=== PATIENT | male | born 1990 | race Caucasian/White ===

== ENCOUNTER 2020-11-16 11:10 | Outpatient (REF) | payer MEDICAID, SELFPAY ==
--- NOTE | ~2020-11-16 | XR_ITS ---
EXAMINATION: XR CHEST CLINICAL INFORMATION: Bronchitis, fever, previous pneumonia. Shortness of breath. COMPARISON: Most recent chest radiograph dated 07/20/2013. TECHNIQUE: 2 views of the chest were obtained. FINDINGS: Small left-sided pleural effusion with irregular left basilar airspace opacities. No right-sided pleural effusion. No pneumothorax. Stable cardiomediastinal silhouette. XR/XR chest 2V IMPRESSION: Small left-sided pleural effusion with left basilar airspace opacities, new when compared to prior radiographs.
== END 2020-11-16 11:11 | disposition home or self-care (01) ==
LOC: HO.XRAY 11:10
PROVIDERS: Absent Provider Internal Medicine; PCP Internal Medicine; Visit Provider Emergency Medicine
DX: J40 Bronchitis, not specified as acute or chronic (principal); R50.9 Fever, unspecified
CPT/HCPCS: 71046

== ENCOUNTER 2020-11-29 11:10 | Outpatient (REF) | payer MEDICAID, SELFPAY ==
--- NOTE | ~2020-11-29 | XR_ITS ---
EXAMINATION: XR CHEST CLINICAL INFORMATION: Pleural effusion COMPARISON: Previous chest x-ray most recent 11/16/2020 TECHNIQUE: 2 views of the chest were obtained. FINDINGS: The cardiac and mediastinal contours are stable. There is a small loculated left pleural effusion. This appears unchanged from previous exam 11/16/2020. There is again question of airspace disease or mass the left lower lobe versus loculated effusion. This appears unchanged. The right lung is clear. There is no right pleural effusion. There is question of a lytic lesion in the left distal clavicle measuring 1 x 1.8 cm. XR/XR chest 2V IMPRESSION: Small loculated left pleural effusion and question left lower lobe airspace disease versus mass similar to 11/16/2020 exam. If there is clinical suspicion of infection, continued chest x-ray follow-up following antibiotic therapy would be recommended. If radiographic abnormality fails to resolve or there is no clinical suspicion of infection, chest CT scan should be considered. Question lucent lesion in the left distal clavicle.
== END 2020-11-29 11:11 | disposition home or self-care (01) ==
LOC: HO.XRAY 11:10
PROVIDERS: PCP Internal Medicine; Visit Provider Family Medicine
DX: J90 Pleural effusion, not elsewhere classified (principal)
CPT/HCPCS: 71046; 71250

== ENCOUNTER 2020-11-29 15:59 | Outpatient (REF) | payer MEDICAID, SELFPAY ==
--- NOTE | ~2020-11-29 | CT_ITS ---
EXAMINATION: CT CHEST WITHOUT CONTRAST CLINICAL INFORMATION: Left-sided pleural effusion COMPARISON: Previous chest x-rays, most recent from earlier the same day TECHNIQUE: Multidetector volumetric CT imaging of the chest was done. Axial MIP volume rendering provided. Sagittal and coronal reformatted images were obtained. This CT examination was performed using dose optimization techniques as appropriate, variously including the following: *Automated exposure control *Adjustment of mA and/or kV according to patient size (this includes techniques or standardized protocols for targeted exams where dose is matched to indication/reason for exam; i.e. extremities or head) *Use of iterative reconstruction technique DLP: 396 mGy-cm FINDINGS: LUNGS: There is a 3 mm calcified lingular nodule. There is round low-attenuation seen in the peripheral posterior left lower lung. It is uncertain whether this represents a lung abscess versus loculated left pleural effusion. This measures 5 x 7 x 6.5 cm in AP transverse and longitudinal dimension, axial image 39 series 2 and sagittal reconstructed image 35. There is adjacent subsegmental atelectasis in the left lower lobe. The right lung is clear. MEDIASTINUM: There is mediastinal lymphadenopathy. Largest lymph node is a subcarinal lymph node that is upper normal in size measuring 1 cm in short axis. Evaluation for hilar adenopathy is limited without contrast. The heart does not appear enlarged. There is no pericardial effusion. PLEURA: There is a small left pleural effusion or pleural thickening. There is question of a loculated left pleural effusion adjacent to the posterior left lower lobe versus peripheral lung abscess as described above. There is no right pleural effusion. AXILLA: No lymphadenopathy. UPPER ABDOMEN: Unremarkable. OSSEOUS STRUCTURES: There is a lucent lesion in the left distal clavicle that measures 1.2 x 2.2 cm. This has a well-defined sclerotic margin and is benign-appearing, axial image 1 series 2. Bony structures are otherwise unremarkable.. CT/CT chest wo con IMPRESSION: Question peripheral left lower lobe lung abscess versus loculated left pleural effusion. This could be better evaluated with IV contrast administration.
== END 2020-11-29 16:00 | disposition home or self-care (01) ==
LOC: HO.CT 15:59
PROVIDERS: PCP Internal Medicine; Visit Provider Family Medicine
DX: J90 Pleural effusion, not elsewhere classified (principal)
CPT/HCPCS: 71250

== ENCOUNTER 2020-12-02 11:10 | Day surgery (SDC) | payer MEDICAID, SELFPAY ==
[2020-12-02] VITALS (7 sets, daily range): BP systolic 106–146; BP diastolic 57–89; PULSE 68–100; RESP 17–18; TEMP 36.6; O2SAT 95–98; BMI 31.2
--- NOTE | ~2020-12-02 | CT_ITS ---
PROCEDURE: CT-GUIDED BIOPSY, LUNG CLINICAL INFORMATION: Left empyema versus lung abscess. COMPARISON: Previous chest CT 11/29/2020. TECHNIQUE: Procedure and risks and benefits including bleeding, infection and pneumothorax were discussed with the patient and informed consent was obtained. The patient was positioned in the left decubitus position. The left back was prepped and draped in the usual sterile fashion. The skin and soft tissues were anesthetized with 1% lidocaine plain. Using CT guidance and a 4 Greek Rapid Centesis catheter, access to the left lower lobe lung abscess versus empyema was obtained. 85 mL of purulent green-colored fluid was aspirated. Diagnostic specimen was sent. The patient received Versed 1.5 mg and fentanyl 50 mcg IV during the procedure. Total sedation time was [address] examination was performed using dose optimization techniques as appropriate, variously including the following: *Automated exposure control *Adjustment of mA and/or kV according to patient size (this includes techniques or standardized protocols for targeted exams where dose is matched to indication/reason for exam; i.e. extremities or head) *Use of iterative reconstruction technique DLP: 554 mGy-cm FINDINGS: There is a 5 x 8 cm thick-walled low-attenuation collection at the left lung base similar to previous exam. Again it is uncertain whether this represents an abscess in the left lower lobe or loculated pleural effusion/empyema. There is a small left pleural effusion or pleural thickening. There is a small calcified nodule in the lingula. Images following drainage demonstrate interval decrease in size in the fluid collection. There is no pneumothorax. CT/CT biopsy lung LT IMPRESSION: CT-guided left lung abscess/pleural empyema aspiration.
--- NOTE | ~2020-12-02 | XR_ITS ---
EXAMINATION: XR CHEST CLINICAL INFORMATION: Post lung biopsy COMPARISON: Previous chest x-ray most recent 11/29/2020 TECHNIQUE: Frontal view of the chest was obtained. FINDINGS: The cardiac and mediastinal contours are stable. There is interval decrease in the left pleural effusion. There is interval decrease in the round opacity at the left lung base. There is surrounding left base atelectasis. There is no pneumothorax. The right lung is clear. There is no right pleural effusion. Bony structures are unremarkable. XR/XR chest 1V IMPRESSION: Interval decrease in left pleural effusion and left lung base opacity compared to 11/29/2020 exam. No pneumothorax.
[2020-12-02 12:09] LABS: MANUAL DIFF FLAG NO
[2020-12-02 12:14] LABS: Basophils Absolute Auto 0.1 X10*3/uL (0.0-0.2); Basophils Percent Auto 0.4 % (0-2); Eosinophils Absolute Auto 0.2 X10*3/uL (0.0-0.4); Eosinophils Percent Auto 1.3 % (0-4); Hematocrit 40.7 % (42-52); Hemoglobin 13.2 g/dl (14.0-18.0); Imm Gran Abs Auto 0.02 X10*3/uL (0.00-0.03); Imm Gran Pct Auto 0.2 % (0.0-0.4); Lymphocytes Absolute Auto 2.8 X10*3/uL (1.2-4.9); Lymphocytes Percent Auto 24.3 % (20-40); Mean Corpuscular HGB Conc 32.4 g/dl (31.0-36.0); Mean Corpuscular Hemoglobin 26.7 pg (27.0-33.0); Mean Corpuscular Volume 82.4 fL (80-98); Mean Platelet Volume 9.1 fL (9.4-12.4); Monocytes Absolute Auto 0.9 X10*3/uL (0.1-1.2); Neutrophils Absolute Auto 7.7 X10*3/uL (2.0-8.3); Neutrophils Percent Auto 65.8 % (45-73); Platelet Count 600 X10*3/uL (160-400); Red Blood Count 4.94 X10*6/uL (4.60-5.80); Red Cell Distribution Width 12.9 % (11.0-16.0); White Blood Count 11.7 X10*3/uL (4.8-10.8)
[2020-12-02 12:15] LABS: INTERNATIONAL NORM RATIO 1.5 (0.9-1.1)
[2020-12-02 12:18] LABS: Partial Thromboplastin Time 38.8 SEC (24.1-38.0)
--- NOTE | 2020-12-02 14:03 | HO.RADPN ---
RADIOLOGY Narrative Narrative: Left chest pleura vs lung aspiration using 4 Fr rapidcentesis catheter. 85 ml purulent appearing green fluid removed. Diagnostic specimens sent. Chest tube placement was recommended to the patient but he did not want to stay in the hospital.
== END 2020-12-02 16:05 | disposition home or self-care (01) ==
PROVIDERS: Radiology Diagnostic Radiology; PCP Internal Medicine; Visit Provider Internal Medicine Pulmonary Disease
DX: J18.9 Pneumonia, unspecified organism (principal); J90 Pleural effusion, not elsewhere classified; Z87.891 Personal history of nicotine dependence; F12.90 Cannabis use, unspecified, uncomplicated
CPT/HCPCS: 32408; 36415; 71045; 85025; 85610; 85730; 87071; 87073; 87076; 87102; 87116; 87185; 87205; 88112; 88305; 88312; 89051; 99152; J2250; J3010

== ENCOUNTER 2020-12-02 11:19 | Outpatient (REF) | payer MEDICAID, SELFPAY | END 2020-12-02 11:20 | disposition home or self-care (01) | LOC: HO.HMGCX 11:19 | PROVIDERS: PCP Internal Medicine; Visit Provider Internal Medicine | DX: Z13.89 Encounter for screening for other disorder (principal) ==

== ENCOUNTER → 2020-12-13 10:56 | Outpatient (BNVA) | payer MEDICAID, SELFPAY | PROVIDERS: PCP Internal Medicine; Visit Provider Internal Medicine Pulmonary Disease | DX: J85.2 Abscess of lung without pneumonia (principal) | CPT/HCPCS: 99202 ==

== ENCOUNTER 2021-01-06 10:16 | Outpatient (REF) | payer MEDICAID, SELFPAY ==
--- NOTE | ~2021-01-06 | CT_ITS ---
EXAMINATION: CT CHEST WITHOUT CONTRAST CLINICAL INFORMATION: Lung abscess COMPARISON: Previous chest x-ray and chest CT scans, most recent 12/02/2020 TECHNIQUE: Multidetector volumetric CT imaging of the chest was done. Axial MIP volume rendering provided. Sagittal and coronal reformatted images were obtained. This CT examination was performed using dose optimization techniques as appropriate, variously including the following: *Automated exposure control *Adjustment of mA and/or kV according to patient size (this includes techniques or standardized protocols for targeted exams where dose is matched to indication/reason for exam; i.e. extremities or head) *Use of iterative reconstruction technique DLP: 245 mGy-cm FINDINGS: TAX AUDIT MANAGER: Pleural-parenchymal disease at the left lung base LUNGS: There is interval decrease in size in the peripheral or subpleural cystic area in the left lower lobe probably representing a lung abscess. There are residual solid-appearing peripheral or subpleural parenchymal densities seen in this area in the left lower lobe. This has a swirled central bronchial vascular appearance and is questionable for resolving lung abscess versus developing round atelectasis. The largest area measures approximately 2 x 4 cm. There is a 3 mm calcified lingular pulmonary nodule axial image 381 series 4 that is stable. There is decreasing atelectasis in the inferior segment of the lingula. The right lung is clear. No evidence of emphysema, interstitial lung disease or bronchiectasis is seen. MEDIASTINUM: There are small mediastinal lymph nodes. No enlarged lymph nodes are seen. The mediastinum is otherwise normal. PLEURA: There is a tiny residual left pleural effusion and pleural thickening. There is no right pleural effusion. There is no pneumothorax. AXILLA: No chest wall mass or enlarged axillary lymph nodes are seen. UPPER ABDOMEN: There may be diverticulosis of the colon. OSSEOUS STRUCTURES: Unremarkable. CT/CT chest wo con IMPRESSION: Interval decrease in size and left lower lobe lung abscess. There are residual peripheral or subpleural solid-appearing parenchymal densities in the left lower lobe probably representing postinfectious or inflammatory scarring or possibly a round atelectasis. Tiny residual left pleural effusion and pleural thickening.
== END 2021-01-06 10:17 | disposition home or self-care (01) ==
LOC: HO.CT 10:16
PROVIDERS: PCP Internal Medicine; Visit Provider Internal Medicine Pulmonary Disease
DX: J85.2 Abscess of lung without pneumonia (principal)
CPT/HCPCS: 71250

== ENCOUNTER → 2021-01-13 09:23 | Outpatient (BNVA) | payer MEDICAID, SELFPAY | PROVIDERS: PCP Internal Medicine; Visit Provider Internal Medicine Pulmonary Disease | DX: J85.2 Abscess of lung without pneumonia (principal) | CPT/HCPCS: 99212 ==

== ENCOUNTER → 2021-03-07 09:12 | Outpatient (BNVA) | payer MEDICAID, SELFPAY | PROVIDERS: PCP Internal Medicine; Visit Provider Internal Medicine Pulmonary Disease | DX: J85.2 Abscess of lung without pneumonia (principal) | CPT/HCPCS: 99212 ==

== ENCOUNTER 2021-03-28 09:07 | Outpatient (REF) | payer MEDICAID, SELFPAY ==
--- NOTE | ~2021-03-28 | CT_ITS ---
EXAMINATION: CT CHEST WITHOUT CONTRAST CLINICAL INFORMATION: Follow-up lung abscess COMPARISON: Previous chest CT scans most recent January 2021 TECHNIQUE: Multidetector volumetric CT imaging of the chest was done. Axial MIP volume rendering provided. Sagittal and coronal reformatted images were obtained. This CT examination was performed using dose optimization techniques as appropriate, variously including the following: *Automated exposure control *Adjustment of mA and/or kV according to patient size (this includes techniques or standardized protocols for targeted exams where dose is matched to indication/reason for exam; i.e. extremities or head) *Use of iterative reconstruction technique DLP: 251 mGy-cm FINDINGS: LUNGS: There is minimal residual stalk scarring or subsegmental atelectasis seen in the left lower lobe and the area of previous lung abscess. There are similar changes seen in the inferior segment of the lingula. There is a small calcified 4 mm lingular nodule axial image 43 series 3 that is stable. The lungs are otherwise clear. MEDIASTINUM: The mediastinum is normal. PLEURA: There is no pleural effusion. No pleural mass or thickening. The previously identified small left pleural effusion or pleural thickening has resolved. AXILLA: No lymphadenopathy. UPPER ABDOMEN: Unremarkable. OSSEOUS STRUCTURES: Unremarkable. CT/CT chest wo con IMPRESSION: Minimal residual linear scarring or subsegmental atelectasis in the peripheral or subpleural left lower lobe and inferior segment of the lingula. Resolved left pleural effusion. Fleischner guidelines were followed.
== END 2021-03-28 09:08 | disposition home or self-care (01) ==
LOC: HO.CT 09:07
PROVIDERS: PCP Internal Medicine; Visit Provider Internal Medicine Pulmonary Disease
DX: J85.2 Abscess of lung without pneumonia (principal)
CPT/HCPCS: 71250

== ENCOUNTER 2021-07-06 09:51 | Outpatient (REF) | payer MEDICAID, SELFPAY ==
--- NOTE | ~2021-07-06 | CT_ITS ---
EXAMINATION: CT CHEST WITHOUT CONTRAST CLINICAL INFORMATION: Abscess of lung without pneumonia. COMPARISON: No prior CT available for comparison. TECHNIQUE: Multidetector volumetric CT imaging of the chest was done. Axial MIP volume rendering provided. Sagittal and coronal reformatted images were obtained. This CT examination was performed using dose optimization techniques as appropriate, variously including the following: *Automated exposure control *Adjustment of mA and/or kV according to patient size (this includes techniques or standardized protocols for targeted exams where dose is matched to indication/reason for exam; i.e. extremities or head) *Use of iterative reconstruction technique CONTRAST: Noncontrasted study. DLP: 240 mGy-cm FINDINGS: MANAGER OF EXHIBITIONS AND COLLECTIONS: LINES/TUBES: Costume Designer reviewed, no lines. LUNGS: Lung parenchyma: No evidence of significant interstitial disease. Lung nodules/masses: There is a linear density likely a scar, adjacent nodular opacity at lingula base measures up to 5 mm has not changed. There is no suspicious nodules or lung mass. There is a stable 4 mm nodule right lower lobe image 107 series 8. A few other scattered tiny smaller densities are present. AIRWAYS: Trachea and bronchi are normal. PLEURA: No pleural effusion or pneumothorax. MEDIASTINUM AND BRIONNA: No mediastinal, hilar or axillary lymphadenopathy. No mediastinal mass. VESSELS: HEART AND PERICARDIUM: Thoracic aorta is normal in size. Heart is normal in size. No pericardial effusion. Pulmonary arteries are normal in size. LOWER NECK, AXILLA: The visualized thyroid gland is unremarkable. No axillary mass or adenopathy. VISUALIZED ABDOMEN: Unremarkable. CHEST WALL AND BONES: No chest wall mass. The visualized bony thorax is within normal limits. CT/CT chest wo con IMPRESSION: 1. No CT evidence of malignancy. 2. Scattered tiny lung densities measuring 4 mm or less and linear scar at lingular base are stable. 3. No CT evidence of lung abscess. Various management parameters for solitary pulmonary nodules are in the literature. According to the UPDATED 2017 Fleischner Society recommendations, the advised follow-up imaging for solid nodules < 6 mm is: LOW RISK PATIENT: No routine follow-up. HIGH RISK PATIENT: Optional CT at 12 months. Reference: Guidelines for Management of Incidental Pulmonary Nodules Detected on CT Images: From the Fleischner Society 2017.
== END 2021-07-06 09:52 | disposition home or self-care (01) ==
LOC: HO.CT 09:51
PROVIDERS: Visit Provider Internal Medicine Pulmonary Disease
DX: J85.2 Abscess of lung without pneumonia (principal)
CPT/HCPCS: 71250

== ENCOUNTER 2021-12-06 07:35 | Outpatient (REF) | payer MEDICAID, SELFPAY ==
--- NOTE | ~2021-12-06 | CT_ITS ---
EXAMINATION: CT CHEST WITHOUT CONTRAST CLINICAL INFORMATION: Lung abscess follow-up COMPARISON: Previous chest CT scans most recent July 2021 TECHNIQUE: Multidetector volumetric CT imaging of the chest was done. Axial MIP volume rendering provided. Sagittal and coronal reformatted images were obtained. This CT examination was performed using dose optimization techniques as appropriate, variously including the following: *Automated exposure control *Adjustment of mA and/or kV according to patient size (this includes techniques or standardized protocols for targeted exams where dose is matched to indication/reason for exam; i.e. extremities or head) *Use of iterative reconstruction technique DLP: 248 mGy-cm FINDINGS: LUNGS: There is a 5 mm calcified lingular nodule axial image 365 series 7 that is stable. There is peripheral or subpleural linear scarring or segmental atelectasis in the inferior segment lingula and anterior segment left lower lobe that is stable. There is a 4 mm right lower lobe nodule axial image 4:15 series 7 that is stable. MEDIASTINUM: The mediastinum is normal. PLEURA: There is no pleural effusion. No pleural mass or thickening. AXILLA: No lymphadenopathy. UPPER ABDOMEN: Unremarkable. OSSEOUS STRUCTURES: Unremarkable. CT/CT chest wo con IMPRESSION: Stable linear scarring or chronic subsegmental atelectasis in the lingula and left lower lobe and small pulmonary nodules. Fleischner guidelines were followed.
== END 2021-12-06 07:36 | disposition home or self-care (01) ==
LOC: HO.CT 07:35
PROVIDERS: PCP Internal Medicine; Visit Provider Internal Medicine Pulmonary Disease
DX: J85.2 Abscess of lung without pneumonia (principal)
CPT/HCPCS: 71250